=== PATIENT | male | born 2000 | race African-American/Black ===

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

== ENCOUNTER 2021-11-25 10:07 | Emergency (ER) | payer SELFPAY ==
[~2021-11-25] VITALS: Ht 177.8 cm; Wt 95.0 kg
[2021-11-25 12:24] LABS: URINE BILIRUBIN - DIPSTICK NEGATIVE (NEGATIVE); URINE BLOOD DIPSTICK NEGATIVE (NEGATIVE); URINE COLOR YELLOW; URINE GLUCOSE - DIPSTICK NEGATIVE (NEGATIVE); URINE KETONE NEGATIVE (NEGATIVE); URINE LEUK ESTERASE NEGATIVE (NEGATIVE); URINE PROTEIN - DIPSTICK NEGATIVE (NEG-TRACE); URINE UROBILINOGEN - DIPSTICK 0.2 E.U./dL (0.2)
[2021-11-25 12:34] LABS: URINE NITRITE - DIPSTICK NEGATIVE (Negative)
[2021-11-25] MEDS ORDERED: IBUPROFEN600 MG PO (12:38)
[2021-11-25] MEDS ORDERED: FLEXERIL5 M1 PO (12:38)
[2021-11-25 12:59] VITALS: BP 143/89
== END 2021-11-25 13:14 | disposition home or self-care (01) | DRG 563 ==
LOC: ED 10:07
DX: S29.012A Strain of muscle and tendon of back wall of thorax, initial encounter (principal); X58.XXXA Exposure to other specified factors, initial encounter